=== PATIENT | female | born 2000 | race Caucasian/White ===

== ENCOUNTER 2023-10-06 17:16 | Emergency (ER) | payer OTHER ==
[2023-10-06 18:10] LABS: BASOPHILS ABSOLUTE AUTO 0.03 K/uL (0.00-0.10); BASOPHILS PERCENT AUTO 0.2 % (0.1-1.3); EOSINOPHILS PERCENT AUTO 0.1 % (0.0-5.4); HEMATOCRIT 40.3 % (34.3-46.0); HEMOGLOBIN 14.9 g/dL (11.2-15.5); IMMATURE GRAN ABSOLUTE AUTO 0.08 K/uL (0.00-0.23); IMMATURE GRAN PERCENT AUTO 0.5 % (0.0-0.7); LYMPHOCYTES ABSOLUTE AUTO 1.28 K/uL (0.8-3.3); LYMPHOCYTES PERCENT AUTO 7.3 % (11.4-47.7); MEAN CORPUSCULAR HEMOGLOBIN 29.7 pg (31.6-35.5); MEAN CORPUSCULAR VOLUME 80.3 fL (81.4-99.0); MONOCYTES ABSOLUTE AUTO 1.13 K/uL (0.20-0.90); MONOCYTES PERCENT AUTO 6.4 % (3.3-12.6); NEUTROPHILS ABSOLUTE AUTO 15.04 K/uL (1.0-7.6); NEUTROPHILS PERCENT AUTO 85.5 % (40.0-78.1); PLATELET COUNT,PLT 372 K/uL (130-375); RED BLOOD CELL COUNT 5.02 M/uL (3.77-5.24); WHITE BLOOD CELL COUNT,WBC 17.6 K/uL (3.2-11.0)
[2023-10-06 18:11] LABS: EOSINOPHILS ABSOLUTE AUTO 0.01 K/uL (0.00-0.40)
[2023-10-06] MEDS: Sodium Chloride 0.9% 1,000 ML IV ONE (18:18)
[2023-10-06] MEDS: Ondansetron 4 MG/2 ML SDV IVPUSH ONE (18:18)
[2023-10-06 18:30] LABS: A/G RATIO 1.1 (1.2-2.2); ALANINE AMINOTRANSFERASE,ALT 25 U/L (12-78); ALBUMIN 4.8 g/dL (3.4-5.0); ALKALINE PHOSPHATASE 71 U/L (46-116); ASPARTATE AMNIOTRANSFERASE,AST 17 U/L (15-37); BILIRUBIN TOTAL 1.1 mg/dL (0.2-1.0); BLOOD UREA NITROGEN,BUN 13 mg/dL (7-18); CALCIUM 9.7 mg/dL (8.5-10.1); CARBON DIOXIDE,CO2 20 mmol/L (21-32); CHLORIDE,CL 96 mmol/L (100-108); CREATININE 0.9 mg/dL (0.6-1.0); EST CRCL DRUG DOSING (CG) 81.25 mL/min; ESTIMATED GFR 92 mL/min (>60); GLUCOSE RANDOM 110 mg/dL (74-106); POTASSIUM,K 3.3 mmol/L (3.6-5.2); PROTEIN TOTAL,TP 9.2 g/dL (6.4-8.2); SODIUM,NA 134 mmol/L (140-148)
[2023-10-06 18:32] LABS: ANION GAP 21.3 mmol/L (5.0-14.0)
[2023-10-06 18:35] LABS: APPEARANCE,URINE SLIGHTLY CLOUDY (CLEAR); COLOR,URINE YELLOW (YELLOW)
[2023-10-06 18:36] LABS: BILIRUBIN,URINE SMALL (NEGATIVE); GLUCOSE,URINE NEGATIVE (NEGATIVE); KETONES,URINE 80 mg/dL (NEGATIVE); LEUKOCYTE ESTERASE,URINE NEGATIVE (NEGATIVE); NITRITE,URINE NEGATIVE (NEGATIVE); OCCULT BLOOD,URINE TRACE (NEGATIVE); PROTEIN,URINE >=300 mg/dL (NEGATIVE); UROBILINOGEN,URINE 0.2 EU/dL (0.2-1.0)
[2023-10-06 18:37] LABS: AMORPHOUS SEDIMENT,URINE FEW; BACTERIA,URINE RARE; EPITHELIAL CELLS,URINE OCCASIONAL; MUCUS,URINE FEW; RBC,URINE 0-5 (0-5); WBC,URINE NOT SEEN (0-5)
== END 2023-10-06 19:33 | disposition home or self-care (01) ==
LOC: JP.ED 17:16
DX: E86.0 Dehydration (principal); R11.2 Nausea with vomiting, unspecified; K21.9 Gastro-esophageal reflux disease without esophagitis; Z79.899 Other long term (current) drug therapy
CPT/HCPCS: 36415; 80053; 81001; 81025; 85025; 86140; 96361; 96374; 99284; J2405; J7030

== ENCOUNTER 2023-10-07 07:06 | Emergency (ER) | payer OTHER ==
[2023-10-07] MEDS: Sodium Chloride 0.9% 10 ML Syringe FLUSH ONE (08:00)
[2023-10-07 08:24] LABS: BASOPHILS ABSOLUTE AUTO 0.07 K/uL (0.00-0.10); BASOPHILS PERCENT AUTO 0.5 % (0.1-1.3); EOSINOPHILS PERCENT AUTO 0.1 % (0.0-5.4); HEMATOCRIT 40.3 % (34.3-46.0); HEMOGLOBIN 14.6 g/dL (11.2-15.5); IMMATURE GRAN ABSOLUTE AUTO 0.08 K/uL (0.00-0.23); IMMATURE GRAN PERCENT AUTO 0.6 % (0.0-0.7); LYMPHOCYTES ABSOLUTE AUTO 1.59 K/uL (0.8-3.3); LYMPHOCYTES PERCENT AUTO 11.3 % (11.4-47.7); MEAN CORPUSCULAR HEMOGLOBIN 29.6 pg (31.6-35.5); MEAN CORPUSCULAR HGB CONC 36.2 g/dL (31.6-35.5); MEAN CORPUSCULAR VOLUME 81.6 fL (81.4-99.0); MONOCYTES PERCENT AUTO 7.1 % (3.3-12.6); NEUTROPHILS ABSOLUTE AUTO 11.34 K/uL (1.0-7.6); NEUTROPHILS PERCENT AUTO 80.4 % (40.0-78.1); PLATELET COUNT,PLT 379 K/uL (130-375); RED BLOOD CELL COUNT 4.94 M/uL (3.77-5.24); WHITE BLOOD CELL COUNT,WBC 14.1 K/uL (3.2-11.0)
[2023-10-07 08:25] LABS: EOSINOPHILS ABSOLUTE AUTO 0.02 K/uL (0.00-0.40)
[2023-10-07] MEDS: Ketorolac 30 MG/ML SDV IVPUSH ONE (08:35)
[2023-10-07] MEDS: droPERidol 5 MG/2 ML SDV IVPUSH ONE (08:35)
[2023-10-07] MEDS: Lactated Ringers 1,000 ML IV SCH (08:35)
[2023-10-07 08:44] LABS: A/G RATIO 1.1 (1.2-2.2); ALANINE AMINOTRANSFERASE,ALT 29 U/L (12-78); ALBUMIN 4.6 g/dL (3.4-5.0); ALKALINE PHOSPHATASE 66 U/L (46-116); ASPARTATE AMNIOTRANSFERASE,AST 21 U/L (15-37); BILIRUBIN TOTAL 1.1 mg/dL (0.2-1.0); BLOOD UREA NITROGEN,BUN 11 mg/dL (7-18); CALCIUM 8.9 mg/dL (8.5-10.1); CARBON DIOXIDE,CO2 22 mmol/L (21-32); CHLORIDE,CL 97 mmol/L (100-108); CREATININE 1.1 mg/dL (0.6-1.0); ESTIMATED GFR 72 mL/min (>60); GLUCOSE RANDOM 96 mg/dL (74-106); PROTEIN TOTAL,TP 8.8 g/dL (6.4-8.2); SODIUM,NA 136 mmol/L (140-148)
[2023-10-07 09:18] LABS: APPEARANCE,URINE CLEAR (CLEAR); BILIRUBIN,URINE NEGATIVE (NEGATIVE); COLOR,URINE YELLOW (YELLOW); GLUCOSE,URINE NEGATIVE (NEGATIVE); KETONES,URINE 40 mg/dL (NEGATIVE); LEUKOCYTE ESTERASE,URINE NEGATIVE (NEGATIVE); NITRITE,URINE NEGATIVE (NEGATIVE); OCCULT BLOOD,URINE TRACE-INTACT (NEGATIVE); PROTEIN,URINE 100 mg/dL (NEGATIVE); UROBILINOGEN,URINE 0.2 EU/dL (0.2-1.0)
[2023-10-07 09:41] LABS: AMORPHOUS SEDIMENT,URINE NOT SEEN; BACTERIA,URINE RARE; EPITHELIAL CELLS,URINE FEW; MUCUS,URINE FEW; RBC,URINE 0-5 (0-5)
[2023-10-07] MEDS: Sodium Chloride 0.9% 10 ML Syringe FLUSH PRN (10:19)
[2023-10-07] MEDS: Iopamidol 612 MG/ML 100 ML Bottle IV SCH (10:19)
[2023-10-07] MEDS: Sodium Chloride 0.9% 100 ML IV SCH (10:20)
[2023-10-07] MEDS: Potassium Chloride 10 MEQ in Premix Bag 1 BAG IV ONE (10:22)
[2023-10-07] MEDS: Potassium Chloride 20 MEQ Tab.ER PO ONE (10:22)
== END 2023-10-07 11:20 | disposition home or self-care (01) ==
LOC: JP.ED 07:06
DX: R11.2 Nausea with vomiting, unspecified (principal); E86.0 Dehydration; E87.6 Hypokalemia; K21.9 Gastro-esophageal reflux disease without esophagitis; Z86.16 Personal history of COVID-19; Z79.899 Other long term (current) drug therapy
CPT/HCPCS: 36415; 74177; 80053; 81001; 81025; 83605; 83690; 85025; 96361; 96365; 96375; 99284; A9270; J1790; J1885; J3480; J3490; J7120; Q9967